=== PATIENT | male | born 1980 | race Caucasian/White ===

== ENCOUNTER 2020-03-12 19:33 | Emergency (ER) | payer MEDICAID ==
[~2020-03-12] VITALS: Ht 165.1 cm; Wt 59.0 kg
--- NOTE | 2020-03-12 20:05 | NUR ---
[facility] C/O SUICIDAL IDEATION WITH PLAN TO JUMP OFF BUILDING; PT AAOX4, -SOB, NAD NOTED, VSS, PENDING ER PROVIDER EVAL
--- NOTE | 2020-03-12 20:51 | NUR ---
SECURITY AT BEDSIDE FOR WANDING
--- NOTE | 2020-03-12 20:57 | NUR ---
covid swab sent
[2020-03-12 21:05] LABS: BASOPHILS # (AUTO) 0.1 /CMM (0.0-0.2); BASOPHILS % (AUTO) 0.9 % (0.0-2.0); EOSINOPHILS % (AUTO) 1.6 % (0.0-6.0); HEMATOCRIT 40 % (39-51); HEMOGLOBIN 13.3 g/dL (13.5-17.5); LYMPHOCYTES # (AUTO) 3.7 /CMM (0.8-4.8); LYMPHOCYTES % (AUTO) 31.8 % (20.0-44.0); MEAN CORPUSCULAR HGB CONC 33 g/dl (31.0-36.0); MEAN CORPUSCULAR VOLUME 89 fL (80-96); MONOCYTES # (AUTO) 1.3 /CMM (0.1-1.30); MONOCYTES % (AUTO) 11.4 % (2.0-12.0); NEUTROPHILS # (AUTO) 6.2 /CMM (1.8-8.9); NEUTROPHILS % (AUTO) 54.3 % (43.0-81.0); PLATELET COUNT (AUTO) 461 /CMM (150-450); RED BLOOD CELL COUNT(AUTO) 4.47 MIL/uL (4.5-6.0); WHITE BLOOD COUNT (AUTO) 11.5 K/uL (4.3-11.0)
[2020-03-12 21:08] LABS: BILIRUBIN,URINE NEGATIVE (NEGATIVE); COLOR,URINE YELLOW (YELLOW); LEUKOCYTE ESTERASE ,URINE NEGATIVE (NEGATIVE); NITRITE, URINE NEGATIVE (NEGATIVE); PH,URINE 6.5 (5.0-8.0); PROTEIN,URINE 30 mg/dl (NEGATIVE); UGLUCOSE NEGATIVE (NEGATIVE); UROBILINOGEN,URINE >=8.0 EU/dL (0.2)
[2020-03-12 21:18] LABS: CALCIUM, SERUM 8.6 mg/dL (8.5-10.1); CARBON DIOXIDE 27 mmol/L (21-32); CHLORIDE 102 mmol/L (98-107); CREATININE 0.8 mg/dL (0.6-1.3); GLUCOSE 101 mg/dL (74-106); POTASSIUM 3.9 mmol/L (3.5-5.1); SODIUM SERUM 138 mmol/L (136-145); UREA NITROGEN, BLOOD 30 mg/dL (7-18)
[2020-03-12 21:20] LABS: BACTERIA,URINE None seen /HPF (None Seen); RBC,URINE 0-2 /HPF (0-2); WBC,URINE 0-2 /HPF (0-3)
[2020-03-12 21:21] LABS: MUCUS,URINE Few /LPF (None Seen); SQUAMOUS EPITHELIAL CELL,UR 0-2 /HPF (None Seen)
[2020-03-12 21:23] LABS: ALANINE AMINOTRANSFERASE 88 U/L (12-78); ALBUMIN 3.7 g/dL (3.4-5.0); ALCOHOL, BLOOD < 3 mg/dL (0-0); ALKALINE PHOSPHATASE 65 U/L (46-116); ASPARTATE AMINOTRANSFERASE 541 U/L (15-37); BILIRUBIN,DIRECT 0.3 mg/dL (0.0-0.2); BILIRUBIN,TOTAL 1.4 mg/dL (0.2-1.0); TOTAL PROTEIN, SERUM 7.5 g/dL (6.4-8.2)
[2020-03-12 21:24] LABS: ACETAMINOPHEN 0 ug/ml (10-30)
[2020-03-12] MEDS ORDERED: IV NS 0.9% 1,000 ML IV ONE ×2 (22:00)
[2020-03-12] MEDS ORDERED: OLANZAPINE 5 MG TABLET PO ONE (22:30)
[2020-03-12] MEDS ORDERED: OLANZAPINE 5 MG TABLET ONE (22:34)
--- NOTE | 2020-03-12 22:54 | NUR ---
CLINICAL FAXED TO [facility] FOR [facility]OLUNT[facility] ADMISSION.
--- NOTE | 2020-03-13 00:43 | NUR ---
TRANSFER INFORMATION: PT ACCEPTED TO [facility] ACCEPTING MD: DR. VALERO UN[address] 2 NUMBER FOR REPORT: [phone]
--- NOTE | 2020-03-13 00:45 | NUR ---
CALLED [facility] FOR TRANSPORTATION. ETA [phone], DID NOT SET UP TRANSPORTATION
--- NOTE | 2020-03-13 00:48 | NUR ---
CALLED [facility] FOR TRANSPORTATION. ETA [phone]. TRIP #[id number]
[2020-03-13 01:50] VITALS: BP 119/82
--- NOTE | 2020-03-13 01:51 | NUR ---
REPORT GIVEN TO IVANA GLASER
== END 2020-03-13 02:07 ==
LOC: ER 19:37
DX: R45.851 Suicidal ideations (principal); E86.0 Dehydration; D64.9 Anemia, unspecified; R79.89 Other specified abnormal findings of blood chemistry; F15.10 Other stimulant abuse, uncomplicated; Z82.49 Family history of ischemic heart disease and other diseases of the circulatory system; G40.909 Epilepsy, unspecified, not intractable, without status epilepticus; F17.200 Nicotine dependence, unspecified, uncomplicated; Z20.828 Contact with and (suspected) exposure to other viral communicable diseases
CPT/HCPCS: 36415; 80048; 80076; 80299; 80307; 80320; 81001; 85025; 87426; 96360; 99285; C9803; J7030; G0480